=== PATIENT | female | born 1960 | race African-American/Black ===

== ENCOUNTER 2020-03-01 11:30 | Emergency (ER) | payer OTHER ==
[~2020-03-01] VITALS: Ht 165.1 cm; Wt 72.6 kg
[2020-03-01 13:15] LABS: URINE BILIRUBIN NEGATIVE (Negative); URINE BLOOD TRACE (Negative); URINE COLOR YELLOW; URINE GLUCOSE-RANDOM* NEGATIVE (Negative); URINE KETONES 1+ (Negative); URINE LEUKOCYTES-REFLEX NEGATIVE (Negative); URINE PROTEIN (DIPSTICK) 3+ (Negative); URINE UROBILINOGEN 0.2 E.U./dl (0.2-1.0)
[2020-03-01 13:16] LABS: URINE NITRITE-REFLEX POSITIVE (Negative)
[2020-03-01 13:17] LABS: URINE CLARITY HAZY
[2020-03-01 13:30] LABS: ANION GAP 11 mmol/L (7-16); BUN 7 mg/dL (7-18); CALCIUM 9.8 mg/dL (8.5-10.1); CHLORIDE 97 mmol/L (98-107); CO2 27 mmol/L (21-32); CREATININE 0.7 mg/dL (0.6-1.0); GLUCOSE 92 mg/dL (74-106); POTASSIUM 3.7 mmol/L (3.5-5.1); SODIUM 135 mmol/L (136-145)
[2020-03-01 13:39] LABS: HEMOGLOBIN 12.5 gm/dL (12.0-15.0); MCHC 31.9 g/dL (28.0-37.0); RBC 5.2 mil/uL (4.20-5.00); RDW 16.2 % (10.5-14.5); WBC 3.1 thou/uL (4.0-11.0)
[2020-03-01 13:40] LABS: ALBUMIN 4.1 g/dL (3.4-5.0); SGOT 25 U/L (15-37); SGPT 37 U/L (30-65); TOTAL BILIRUBIN 0.4 mg/dL (0.2-1.0); TOTAL PROTEIN 8.8 g/dL (6.4-8.2); TROPONIN-I <0.06 ng/mL (<0.06)
[2020-03-01] MEDS ORDERED: RESTORIL7.5 MG PO (14:18)
[2020-03-01] MEDS ORDERED: MACROBID 100 M100 MG PO (14:18)
[2020-03-01 14:25] LABS: BACTERIA-REFLEX >30 Many /HPF (None Seen)
[2020-03-01 14:26] LABS: CASTS None Seen /LPF (None Seen); CRYSTALS None Seen /LPF (None Seen); SQUAMOUS 0-3 Few /LPF (0-3); URINE RBC 0-2 Rare /HPF (0-2); URINE WBC-REFLEX 0-5 Rare /HPF (0-5)
[2020-03-01 14:45] VITALS: BP 137/95
--- NOTE | 2020-03-02 08:48 | EKG ---
[address] [address] ELECTROCARDIOGRAM REPORT Name: HERNANDO CLEMENTS [facility] [id number] Admission: 03/01/20 Attend Phys: Discharge: 03/01/20 Date of : 56 Report #: [id number] [facility] ED Test Date: 2020-03-01 Test Time: 12:21:36 Pat Name: HERNANDO CLEMENTS Department: Room: Gender: F Food Preparation Kitchen Aide: HARRY : 1960 Requested By: Deanne Santiago Order Number: [id number] MD: Kevyn Moreno Measurements Intervals [place] Rate: 98 P: 60 CA: 156 QRS: 36 QRSD: 91 T: 3 QT: 322 QTc: 412 Interpretive Statements Sinus rhythm Left atrial enlargement Probable left ventricular hypertrophy No previous ECG available for comparison Electronically Signed On 03-02-2020 8:48:28 [employer] by Kevyn Moreno [email or web address] <ELECTRONICALLY SIGNED> By: Kevyn Moreno MD, [facility] 03/02/20 0848 1221 1221 Kevyn Moreno MD, FACC /EPI
== END 2020-03-01 14:45 | disposition home or self-care (01) ==
LOC: ER 11:30
PROVIDERS: Physician Assistant
DX: G47.00 Insomnia, unspecified (principal); F41.9 Anxiety disorder, unspecified; N39.0 Urinary tract infection, site not specified; R03.0 Elevated blood-pressure reading, without diagnosis of hypertension